=== PATIENT | male | born 1960 | race Caucasian/White ===

== ENCOUNTER 2023-01-04 09:31 | Inpatient (IN) | payer MEDICAID ==
[2022-12-29 14:41] LABS: BASOPHILS # (AUTO) 0.1 X10'3 (0-0.2); BASOPHILS % (AUTO) 0.8 % (0-1); EOSINOPHILS # (AUTO) 0.1 X10'3 (0-0.9); EOSINOPHILS % (AUTO) 1.4 % (0-6); LYMPHOCYTES # (AUTO) 1.8 X10'3 (1.1-4.8); LYMPHOCYTES % (AUTO) 23.7 % (21-51); MEAN CORPUSCULAR HEMOGLOBIN 29.8 PG (27.0-31.0); MEAN CORPUSCULAR HGB CONC 33.7 g/dL (33.0-36.5); MEAN CORPUSCULAR VOLUME 88.4 FL (78-98); MEAN PLATELET VOLUME 8.9 FL (7.4-10.4); MONOCYTES # (AUTO) 0.6 X10'3 (0-0.9); MONOCYTES % (AUTO) 7.7 % (2-12); NEUTROPHILS # (AUTO) 5.1 X10'3 (1.8-7.7); NEUTROPHILS % (AUTO) 66.4 % (42-75); PRE OP HEMATOCRIT 45.6 % (42.0-52.0); PRE OP HEMOGLOBIN 15.4 g/dL (14.0-17.9); PRE OP PLATELET COUNT 215 X10'3 (140-440); RED BLOOD COUNT 5.17 X10'6 (4.70-6.10); RED CELL DISTRIBUTION WIDTH 13.7 % (11.5-14.5)
[2022-12-29 14:55] LABS: ALBUMIN 4.1 G/DL (3.4-5.0); ALBUMIN/GLOBULIN RATIO 1.1 (1.1-1.5); ALKALINE PHOSPHATASE 89 IU/L (46-116); BLOOD UREA NITROGEN 18 MG/DL (7-18); BUN/CREATININE RATIO 13.3 (10.0-20.0); CHLORIDE 102 MMOL/L (99-107); CREATININE 1.35 MG/DL (0.60-1.10); PRE OP ALT 41 U/L (30-65); PRE OP ANION GAP 10 (8-16); PRE OP AST 24 U/L (10-37); PRE OP BILIRUB, TOTAL 0.8 MG/DL (0.0-1.0); PRE OP GLUCOSE 92 MG/DL (70-104); PRE OP POTASSIUM 4.2 MMOL/L (3.4-5.1); PRE OP SODIUM 141 MMOL/L (135-145); TOTAL CARBON DIOXIDE 29.1 MMOL/L (24-32); TOTAL PROTEIN 7.8 G/DL (6.4-8.2); eGFR 54 ML/MIN
[2023-01-04] VITALS (28 sets, daily range): BP systolic 106–137; BP diastolic 69–90; PULSE 82–104; RESP 10–18; TEMP 97.6–98.4; O2SAT 91–100
[~2023-01-04] VITALS: Ht 177.8 cm; Wt 93.1 kg
[~2023-01-04 09:31] MED LIST: DIPH-681 PO; ceFOXitin 2GM-NS 100mL ADDvant 100 ML IV ONE; famotidine 20mg tablet PO ONE; ringers solution, lacted 1,000 ML IV SCH
[2023-01-04] MEDS ORDERED: BUPIVAcaine/PF 2.5 mg/ml (0.25%) 30ml vial ONE (11:49)
[2023-01-04] MEDS ORDERED: LIDOcaine 1% (10mg/ml)w/preservative inj. 20ml MDV ONE (11:49)
[2023-01-04] MEDS ORDERED: ringers solution, lacted 1,000 ML IV SCH (11:55)
[2023-01-04] MEDS ORDERED: fentaNYL/PF 50MCG/1 ML 2ML syringe IV PRN ×2 (11:55)
[2023-01-04] MEDS ORDERED: hydrALAZINE 20mg/ml inj. IV PRN (11:55)
[2023-01-04] MEDS ORDERED: labetalol 20mg/4ml (5mg/ml) syringe IV PRN (11:55)
[2023-01-04] MEDS ORDERED: morphine 2 MG/ML inj. syringe IV PRN (11:55)
[2023-01-04] MEDS ORDERED: ondansetron/PF 4mg/2ml inj IV PRN (11:55)
[2023-01-04] MEDS ORDERED: ondansetron/PF 4mg/2ml inj ONE (12:07)
[2023-01-04] MEDS ORDERED: propofol inj 20 ML IV ONE (12:07)
[2023-01-04] MEDS ORDERED: rocuronium 10mg/ml inj IV ONE ×3 (12:07→13:26)
[2023-01-04] MEDS ORDERED: LIDOcaine 2% (20mg/ml) 5ml vial ONE (12:07)
[2023-01-04] MEDS ORDERED: midazolam 1 mg/ML 2ml injection ONE (12:07)
[2023-01-04] MEDS ORDERED: fentaNYL/PF 50MCG/1 ML 2ML syringe ONE ×2 (12:07→13:00)
[2023-01-04] MEDS ORDERED: INDOCYANINE GREEN 25 MG/10 ML VIAL IV ONE (12:08)
[2023-01-04] MEDS ORDERED: dexamethasone sod phosphate 4mg/ml inj. ONE (12:08)
[2023-01-04] MEDS ORDERED: sevoflurane 250ml liquid IH ONE (12:08)
[2023-01-04] MEDS ORDERED: glycopyrrolate 0.2mg/ml inj ONE (12:08)
[2023-01-04] MEDS ORDERED: neostigmine methylsulfate 1 MG/ML 10ml vial ONE (12:08)
[2023-01-04] MEDS ORDERED: LIDOCAINE 1% w/preservative (10 MG/ML) inj. 10mL VIAL IJ ONE (12:43)
[2023-01-04] MEDS ORDERED: labetalol 20mg/4ml (5mg/ml) syringe IV ONE (12:51)
--- NOTE | 2023-01-04 15:12 | NUR ---
Received from OR via HOSPITAL BED TO RR 6, accompanied by Anesthesiologist TONY and report given by Anesthesiolgist. PATIENTS VSS, SPO2 96% ON 10L MASK. LR RUNNING AT 100ML/HR, ABD ISLAND DRESSING TO RLQ, BANDAIDS X 3 ALL CDI. F/C DRAINING TO GRAVITY, URINE CY. WILL CONTINUE TO ASSESS
[2023-01-04] MEDS ORDERED: naloxone 0.4 mg/ml inj IV PRN (15:15)
[2023-01-04] MEDS ORDERED: oxyCODONE/APAP 5-325mg tablet PO PRN (15:35)
[2023-01-04] MEDS ORDERED: diphenhydrAMINE 25mg capsule PO PRN (15:40)
[2023-01-04] MEDS: morphine 4 MG/ML inj SYRINge IV PRN ×2 (15:42→17:32)
--- NOTE | 2023-01-04 15:55 | NUR ---
INCENTIVE SPIROMETER GIVEN TO PATIENT: HE IS NOT READY TO USE AT THIS TIME. ADDED 2L NC FOR COMFORT AND SPO2 91% ON RA.
[2023-01-04] MEDS: ketorolac trometh. 30mg/ml inj. IV SCH (16:00)
--- NOTE | 2023-01-04 17:30 | NUR ---
Received patient report via phone from Maricarmen OTERO in Recovery. All questions answered. Will assume patient care when patient comes to the floor.
--- NOTE | 2023-01-04 17:45 | NUR ---
Patient arrived to the floor via hospital bed. Del Castillo catheter in place, 20G piv RIGHT FA, IV fluids infusing per MD orders. lap sites and small island dressing CDI. Vital signs stable. Started patient on post op vitals and patient is on 2L oxygen via NC. Will monitor patient and hand off report to NOC shift coming on shift.
--- NOTE | 2023-01-04 17:52 | NUR ---
PATIENT REPORT GIVEN TO BRANDEN JACOBS, ALL QUESTIONS, COMMENTS, AND CONCERNS ANSWERED AT THIS TIME. PATIENT TRANSPORTED ON HOSPITAL BED TO ROOM 40AAA. PERSONAL BAG AND 2 HOSPITAL BAGS WITH PATIENT INCLUDING IS. VSS WITH SPO2 97% ON 2L NC. LR RUNNING AT 100ML/HR. F/C DRAINING TO GRAVITY, URINE REMAINS CY. DRESSING CDI AND [address], CDI[address] BLL, 2 RAILS UP, CALL LIGHT WITHIN REACH. ONCOMING NURSE IN ROOM UPON TRANSFER.
[2023-01-04] MEDS: ringers solution, lacted 1,000 ML IV SCH (18:01)
--- NOTE | 2023-01-04 18:45 | NUR ---
Patient in room ORTHO 4011. I have received report from BRANDEN JACOBS and had the opportunity to ask questions and assume patient care.
--- NOTE | 2023-01-04 18:56 | NUR ---
Problems reprioritized. Patient report given, questions answered & plan of care reviewed with Elizabeth Tenorio RN.
[2023-01-05] VITALS (7 sets, daily range): BP systolic 99–120; BP diastolic 58–77; PULSE 74–88; RESP 15–18; TEMP 97.7–98.7; O2SAT 93–97
[2023-01-05] MEDS: ketorolac trometh. 30mg/ml inj. IV SCH ×3 (00:11→16:20)
[2023-01-05] MEDS: ringers solution, lacted 1,000 ML IV SCH ×3 (03:10→21:15)
[2023-01-05] MEDS: oxyCODONE/APAP 10/325mg tablet PO PRN ×2 (03:19→07:50)
--- NOTE | 2023-01-05 06:20 | NUR ---
Problems reprioritized. Patient report given, questions answered & plan of care reviewed with JOSHUA SANCHEZ.
[2023-01-05 06:53] LABS: BASOPHILS % (AUTO) 0.2 % (0-1); EOSINOPHILS % (AUTO) 0 % (0-6); HEMOGLOBIN 14.1 g/dl (14.0-17.9); LYMPHOCYTES # (AUTO) 0.9 X10'3 (1.1-4.8); LYMPHOCYTES % (AUTO) 7.3 % (21-51); MEAN CORPUSCULAR HGB CONC 33.5 g/dL (33.0-36.5); MEAN CORPUSCULAR VOLUME 89.5 FL (78-98); MONOCYTES # (AUTO) 1.1 X10'3 (0-0.9); NEUTROPHILS # (AUTO) 10.5 X10'3 (1.8-7.7); NEUTROPHILS % (AUTO) 83.5 % (42-75); PLATELET COUNT 187 X10'3 (140-440); RED CELL DISTRIBUTION WIDTH 13.5 % (11.5-14.5); WHITE BLOOD COUNT 12.6 X10'3 (4.5-11.0)
[2023-01-05 07:07] LABS: ALBUMIN 3.3 G/DL (3.4-5.0); ANION GAP 7 (8-16); BLOOD UREA NITROGEN 17 MG/DL (7-18); BUN/CREATININE RATIO 12.2 (10.0-20.0); CALCIUM 8.5 MG/DL (8.5-10.1); CHLORIDE 102 MMOL/L (99-107); CREATININE 1.39 MG/DL (0.60-1.10); GLUCOSE 131 MG/DL (70-104); POTASSIUM 4.6 MMOL/L (3.5-5.1); SODIUM 137 MMOL/L (135-145); TOTAL CARBON DIOXIDE 27.7 MMOL/L (24-32); eGFR 52 ML/MIN
[2023-01-05] MEDS: enoxaparin 40mg/0.4ml syringe SQ SCH (08:07)
--- NOTE | 2023-01-05 18:00 | NUR ---
I have reviewed and agree with interventions, assessments, and documentation by Candy Chandler LVN.
--- NOTE | 2023-01-05 19:13 | NUR ---
Patient in room ORTHO 4011. I have received report from LAURA LEWIS and had the opportunity to ask questions and assume patient care.
[2023-01-05] MEDS: ondansetron/PF 4mg/2ml inj IV PRN (20:35)
[2023-01-06] MEDS: ringers solution, lacted 1,000 ML IV SCH ×3 (00:06→21:00)
[2023-01-06] MEDS: ketorolac trometh. 30mg/ml inj. IV SCH ×3 (00:09→15:39)
[2023-01-06] MEDS: ondansetron/PF 4mg/2ml inj IV PRN (03:33)
[2023-01-06] MEDS: oxyCODONE/APAP 10/325mg tablet PO PRN ×3 (03:34→19:34)
--- NOTE | 2023-01-06 05:44 | NUR ---
PATIENT COMPLAINING OF NAUSEA AND ZOFRAN ADMINISTERED ORDERED. FEW MINUTE LATER, PATIENT STARTED THROWING UP AND PER DOCTOR ELLIS' S ORDER, TO PLACE AN NJ TUBE. NJ TUBE PLACED AND 600ML BROWN OUTPUT . PATIENT COMPLAINED THAT HE WAS UNCOMFORTABLE AND WANTED THE TUBE OUT. NOTIFIED CHARGE NURSE AND NJ REMOVED. PATIENT EDUCATED BUT INSISTED HE DID NOT WANT THE NJ TUBE. WILL CONTACT THE DOCTOR.
[2023-01-06 06:00] VITALS: BP 93/53; PULSE 122; RESP 14; TEMP 98; O2SAT 93
--- NOTE | 2023-01-06 06:38 | NUR ---
Problems reprioritized. Patient report given, questions answered & plan of care reviewed with DENISE OTERO.
[2023-01-06 06:41] LABS: ALBUMIN 3.2 G/DL (3.4-5.0); ANION GAP 9 (8-16); BLOOD UREA NITROGEN 19 MG/DL (7-18); BUN/CREATININE RATIO 14.2 (10.0-20.0); CALCIUM 8.8 MG/DL (8.5-10.1); CHLORIDE 102 MMOL/L (99-107); CREATININE 1.34 MG/DL (0.60-1.10); GLUCOSE 112 MG/DL (70-104); POTASSIUM 4.1 MMOL/L (3.5-5.1); SODIUM 140 MMOL/L (135-145); TOTAL CARBON DIOXIDE 28.6 MMOL/L (24-32); eGFR 54 ML/MIN
[2023-01-06 06:55] LABS: BASOPHILS % (AUTO) 0.5 % (0-1); EOSINOPHILS % (AUTO) 0 % (0-6); HEMATOCRIT 40.4 % (42.0-52.0); HEMOGLOBIN 13.6 g/dl (14.0-17.9); LYMPHOCYTES # (AUTO) 0.4 X10'3 (1.1-4.8); LYMPHOCYTES % (AUTO) 3.9 % (21-51); MEAN CORPUSCULAR HEMOGLOBIN 30.1 PG (27.0-31.0); MEAN CORPUSCULAR HGB CONC 33.7 g/dL (33.0-36.5); MEAN CORPUSCULAR VOLUME 89.1 FL (78-98); MEAN PLATELET VOLUME 9.1 FL (7.4-10.4); MONOCYTES # (AUTO) 0.7 X10'3 (0-0.9); MONOCYTES % (AUTO) 6.5 % (2-12); NEUTROPHILS # (AUTO) 9.8 X10'3 (1.8-7.7); NEUTROPHILS % (AUTO) 89.1 % (42-75); PLATELET COUNT 181 X10'3 (140-440); RED BLOOD COUNT 4.53 X10'6 (4.70-6.10); RED CELL DISTRIBUTION WIDTH 13.7 % (11.5-14.5)
[2023-01-06 08:00] VITALS: RESP 19
[2023-01-06] MEDS: enoxaparin 40mg/0.4ml syringe SQ SCH (08:49)
[2023-01-06 10:22] VITALS: BP 101/65; PULSE 104; RESP 18; TEMP 98.3; O2SAT 85
--- NOTE | 2023-01-06 15:07 | NUR ---
Patient placed on NPO, no breakfast tray. Patient has no longer been N, V. Lunch tray given along with water. Patient is not tolerating CL diet and walking. Patient states he is having gas since last night. Patient stood up to void, 125cc voided, dark urine.
[2023-01-06 18:00] VITALS: BP 105/69; PULSE 69; RESP 16; TEMP 97.9; O2SAT 96
--- NOTE | 2023-01-06 18:15 | NUR ---
Patient in room ORTHO 4014. I have received report from Bruna OTERO and had the opportunity to ask questions and assume patient care.
[2023-01-06 20:00] VITALS: RESP 16; O2SAT 97
[2023-01-06 22:00] VITALS: BP 104/73; PULSE 110; RESP 19; TEMP 98.9; O2SAT 98
[2023-01-07] MEDS: ketorolac trometh. 30mg/ml inj. IV SCH ×3 (00:13→15:58)
[2023-01-07] MEDS: oxyCODONE/APAP 10/325mg tablet PO PRN (00:14)
[2023-01-07 06:00] VITALS: BP 114/70; PULSE 104; RESP 17; TEMP 97.5; O2SAT 94
--- NOTE | 2023-01-07 06:02 | NUR ---
Problems reprioritized. Patient report given, questions answered & plan of care reviewed with Donna LEWIS.
[2023-01-07 06:23] LABS: BASOPHILS % (AUTO) 0.1 % (0-1); EOSINOPHILS % (AUTO) 0.1 % (0-6); HEMATOCRIT 35.8 % (42.0-52.0); HEMOGLOBIN 12.1 g/dl (14.0-17.9); LYMPHOCYTES # (AUTO) 0.4 X10'3 (1.1-4.8); MEAN CORPUSCULAR HEMOGLOBIN 30.5 PG (27.0-31.0); MEAN CORPUSCULAR HGB CONC 33.8 g/dL (33.0-36.5); MEAN CORPUSCULAR VOLUME 90.3 FL (78-98); MEAN PLATELET VOLUME 8.8 FL (7.4-10.4); MONOCYTES # (AUTO) 0.7 X10'3 (0-0.9); MONOCYTES % (AUTO) 6.7 % (2-12); NEUTROPHILS # (AUTO) 9.9 X10'3 (1.8-7.7); NEUTROPHILS % (AUTO) 89.1 % (42-75); PLATELET COUNT 157 X10'3 (140-440); RED BLOOD COUNT 3.97 X10'6 (4.70-6.10); RED CELL DISTRIBUTION WIDTH 14.2 % (11.5-14.5); WHITE BLOOD COUNT 11.1 X10'3 (4.5-11.0)
[2023-01-07 06:29] LABS: ALBUMIN 2.6 G/DL (3.4-5.0); ANION GAP 8 (8-16); BLOOD UREA NITROGEN 29 MG/DL (7-18); BUN/CREATININE RATIO 19.3 (10.0-20.0); CALCIUM 8.5 MG/DL (8.5-10.1); CHLORIDE 100 MMOL/L (99-107); GLUCOSE 115 MG/DL (70-104); SODIUM 136 MMOL/L (135-145); TOTAL CARBON DIOXIDE 28.2 MMOL/L (24-32); eGFR 48 ML/MIN
--- NOTE | 2023-01-07 06:39 | NUR ---
Patient in room ORTHO 4014. I have received report from BRANDEN Oshea and had the opportunity to ask questions and assume patient care.
[2023-01-07 08:00] VITALS: RESP 16; O2SAT 94
[2023-01-07] MEDS: enoxaparin 40mg/0.4ml syringe SQ SCH (08:19)
[2023-01-07 10:00] VITALS: BP 106/70; PULSE 103; RESP 16; TEMP 99.1; O2SAT 91
[2023-01-07] MEDS: ringers solution, lacted 1,000 ML IV SCH (13:15)
--- NOTE | 2023-01-07 13:31 | NUR ---
COOK CASHIER FOOD PREP documentation: I have reviewed and agree with all interventions, assessments performed and documented by Tremaine Sawyer LVN .
[2023-01-07] MEDS ORDERED: magnesium hydroxide 30ml (MOM) UD suspension PO ONE (16:00)
[2023-01-07 18:00] VITALS: BP 119/73; PULSE 109; RESP 14; TEMP 97.7; O2SAT 91
--- NOTE | 2023-01-07 18:15 | NUR ---
Patient in room ORTHO 4014. I have received report from Donna LEWIS and had the opportunity to ask questions and assume patient care.
[2023-01-07 20:00] VITALS: RESP 14; O2SAT 91
--- NOTE | 2023-01-07 20:00 | NUR ---
Pt showered this evening, during this time I observed his lap and incision sites. he has three lap sites left anterior lateral with two demetrius securing each lap site. The skin around these sites are pink with no signs of drainage. I also observed an incision site medial lower abdomen that has 4 demetrius. The skin is also pink with no signs of drainage. Will continue to monitor.
[2023-01-07 22:00] VITALS: BP 126/70; PULSE 114; RESP 16; TEMP 98.1; O2SAT 93
[2023-01-08] MEDS: ondansetron/PF 4mg/2ml inj IV PRN (00:33)
--- NOTE | 2023-01-08 02:53 | NUR ---
Pt has ambulated 600ft this shift resulting in positive flatus. Will continue to encourage walking in an attempt to continue to pass gas.
[2023-01-08 04:35] LABS: ALBUMIN 2.4 G/DL (3.4-5.0); ANION GAP 10 (8-16); BLOOD UREA NITROGEN 30 MG/DL (7-18); BUN/CREATININE RATIO 21.1 (10.0-20.0); CALCIUM 8.8 MG/DL (8.5-10.1); CHLORIDE 99 MMOL/L (99-107); CREATININE 1.42 MG/DL (0.60-1.10); GLUCOSE 126 MG/DL (70-104); POTASSIUM 3.7 MMOL/L (3.5-5.1); SODIUM 137 MMOL/L (135-145); eGFR 51 ML/MIN
[2023-01-08 04:45] LABS: BASOPHILS % (AUTO) 0.1 % (0-1); EOSINOPHILS % (AUTO) 0 % (0-6); HEMATOCRIT 35.8 % (42.0-52.0); LYMPHOCYTES # (AUTO) 0.5 X10'3 (1.1-4.8); MEAN CORPUSCULAR HEMOGLOBIN 30.3 PG (27.0-31.0); MEAN CORPUSCULAR HGB CONC 33.6 g/dL (33.0-36.5); MEAN CORPUSCULAR VOLUME 90.1 FL (78-98); MEAN PLATELET VOLUME 8.9 FL (7.4-10.4); MONOCYTES # (AUTO) 1.2 X10'3 (0-0.9); MONOCYTES % (AUTO) 9.4 % (2-12); NEUTROPHILS # (AUTO) 11.3 X10'3 (1.8-7.7); NEUTROPHILS % (AUTO) 86.5 % (42-75); PLATELET COUNT 178 X10'3 (140-440); RED BLOOD COUNT 3.97 X10'6 (4.70-6.10); RED CELL DISTRIBUTION WIDTH 13.8 % (11.5-14.5); WHITE BLOOD COUNT 13.1 X10'3 (4.5-11.0)
[2023-01-08 06:00] VITALS: BP 122/71; PULSE 98; RESP 16; TEMP 98.8; O2SAT 92
--- NOTE | 2023-01-08 06:18 | NUR ---
Problems reprioritized. Patient report given, questions answered & plan of care reviewed with Donna LEWIS.
--- NOTE | 2023-01-08 06:19 | NUR ---
Patient in room ORTHO 4014. I have received report from BRANDEN Oshea and had the opportunity to ask questions and assume patient care.
[2023-01-08] MEDS: ringers solution, lacted 1,000 ML IV SCH (06:51)
[2023-01-08 08:00] VITALS: RESP 16; O2SAT 97
[2023-01-08] MEDS: enoxaparin 40mg/0.4ml syringe SQ SCH (08:01)
[2023-01-08] MEDS: oxyCODONE/APAP 10/325mg tablet PO PRN ×2 (09:42→22:15)
[2023-01-08 10:00] VITALS: BP 118/71; PULSE 101; RESP 16; TEMP 97.6; O2SAT 97
[2023-01-08] MEDS ORDERED: metoclopramide 5 mg/ml inj IV PRN (14:00)
[2023-01-08] MEDS: metoclopramide 5 mg/ml inj IV SCH ×2 (14:10→20:14)
--- NOTE | 2023-01-08 15:49 | NUR ---
CARPET INSTALLATION SPECIALIST documentation: I have reviewed and agree with all interventions, assessments performed and documented by Tremaine Sawyer LVN.
[2023-01-08 18:00] VITALS: BP 106/65; PULSE 117; RESP 18; TEMP 102; O2SAT 90
--- NOTE | 2023-01-08 18:46 | NUR ---
Problems reprioritized. Patient report given, questions answered & plan of care reviewed with JOSHUA Chang.
--- NOTE | 2023-01-08 20:15 | NUR ---
He verbalized that he passed gas in the early am but not much since then. He also has intermittent nausea and abd pain. Addendum: 01/08/23 at 2312 by Shayla Crain RN Amended: Links added.
[2023-01-08] MEDS: magnesium hydroxide 30ml (MOM) UD suspension PO SCH (20:17)
[2023-01-08 22:00] VITALS: BP 118/73; PULSE 108; RESP 16; TEMP 97.8; O2SAT 93
--- NOTE | 2023-01-08 23:12 | NUR ---
Agree with Charlene LEWIS physical assessment except where I documented my findings.
[2023-01-09] MEDS: metoclopramide 5 mg/ml inj IV SCH ×3 (01:30→14:00)
[2023-01-09 06:00] VITALS: BP 107/65; PULSE 101; RESP 16; TEMP 97.7; O2SAT 92
--- NOTE | 2023-01-09 06:14 | NUR ---
Problems reprioritized. Patient report given, questions answered & plan of care reviewed with Kacie LEWIS.
--- NOTE | 2023-01-09 06:26 | NUR ---
Patient in room ORTHO 4007. I have received report from JOSHUA Pope and had the opportunity to ask questions and assume patient care. NAD at this time.
[2023-01-09 07:05] LABS: BASOPHILS % (AUTO) 0.2 % (0-1); EOSINOPHILS % (AUTO) 0.1 % (0-6); HEMATOCRIT 38.2 % (42.0-52.0); HEMOGLOBIN 12.7 g/dl (14.0-17.9); LYMPHOCYTES # (AUTO) 0.7 X10'3 (1.1-4.8); LYMPHOCYTES % (AUTO) 5.8 % (21-51); MEAN CORPUSCULAR HEMOGLOBIN 30.2 PG (27.0-31.0); MEAN CORPUSCULAR HGB CONC 33.4 g/dL (33.0-36.5); MEAN CORPUSCULAR VOLUME 90.6 FL (78-98); MEAN PLATELET VOLUME 8.4 FL (7.4-10.4); MONOCYTES # (AUTO) 1.5 X10'3 (0-0.9); MONOCYTES % (AUTO) 13.5 % (2-12); NEUTROPHILS # (AUTO) 9.2 X10'3 (1.8-7.7); NEUTROPHILS % (AUTO) 80.4 % (42-75); PLATELET COUNT 212 X10'3 (140-440); RED BLOOD COUNT 4.21 X10'6 (4.70-6.10); RED CELL DISTRIBUTION WIDTH 13.9 % (11.5-14.5); WHITE BLOOD COUNT 11.4 X10'3 (4.5-11.0)
[2023-01-09] MEDS: oxyCODONE/APAP 10/325mg tablet PO PRN (07:19)
[2023-01-09] MEDS: magnesium hydroxide 30ml (MOM) UD suspension PO SCH (07:19)
[2023-01-09] MEDS: enoxaparin 40mg/0.4ml syringe SQ SCH (07:23)
[2023-01-09 07:24] LABS: ALBUMIN 2.5 G/DL (3.4-5.0); ANION GAP 11 (8-16); BLOOD UREA NITROGEN 24 MG/DL (7-18); BUN/CREATININE RATIO 16.4 (10.0-20.0); CALCIUM 8.8 MG/DL (8.5-10.1); CHLORIDE 97 MMOL/L (99-107); CREATININE 1.46 MG/DL (0.60-1.10); GLUCOSE 101 MG/DL (70-104); POTASSIUM 3.4 MMOL/L (3.5-5.1); SODIUM 135 MMOL/L (135-145); TOTAL CARBON DIOXIDE 26.9 MMOL/L (24-32); eGFR 49 ML/MIN
[2023-01-09 08:00] VITALS: RESP 16; O2SAT 98
--- NOTE | 2023-01-09 09:29 | NUR ---
Patient has no replacement regimen for replacement of K: calling Dr. Caceres who is covering for Dr. Wang.
--- NOTE | 2023-01-09 09:44 | NUR ---
No response when attempting to contact the surgeon; pt doesn't of the hospitalist on the other note as well. Will keep trying and await for rounding as well to seek protocol K treatment.
[2023-01-09] MEDS ORDERED: potassium Cl 20 mEq SR tablet PO PRN ×2 (09:55)
[2023-01-09] MEDS ORDERED: potassium Cl 40MEQ/1/2NS 520ml 520 ML IV PRN (09:55)
[2023-01-09] MEDS ORDERED: magnesium Cl slow-release 64mg tablet PO PRN (09:55)
[2023-01-09 10:00] VITALS: BP 99/64; PULSE 92; RESP 16; TEMP 98.1; O2SAT 91
[2023-01-09 10:20] LABS: MAGNESIUM 2.5 MG/DL (1.5-2.4)
--- NOTE | 2023-01-09 12:33 | NUR ---
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 Advanced to clear liquids from initial NPO 01/05 ~56% first 4 meals now remains on full liquids since 01/07 WL ~30% avg meals not meeting estimated needs. CASEY d/w BOOKKEEPING CLERK pt would benefit from Ensure Enlive TIDWM to assist meeting needs if surgeon agreeable. LBM 01/09 receiving routine MoM and reglan per EMR. Will monitor for further nutrition intervention needs. Rec: 1. advance diet as medically indicated to low-residue; encourage PO 2. Ensure Enlive TIDWM if surgeon agreeable to assist meeting nutrient needs 3. routine bowel care 4. weekly wt Addendum: 01/09/23 at [address] Amended: Links added.
--- NOTE | 2023-01-09 15:33 | NUR ---
Patient d/c'd, accompanied by his mother. Patient has no acute distress at this time. Discharge paperwork provided and signed with all questions answered. IV d/c'd to the right forearm, cannula intact.
[2023-01-09] MEDS ORDERED: K and/or MAG REPLACEMENT MC SCH (20:00)
== END 2023-01-09 15:54 | disposition home or self-care (01) | DRG 231 ==
LOC: PAS IN 09:31 → ORTHO 4S 17:53
PROVIDERS: ADMIT Surgery; ATTEND Surgery
PROC: 8E0W4CZ Robotic Assisted Procedure of Trunk Region, Percutaneous Endoscopic Approach (ICD-10-PCS; 2023-01-04)
PROC: 0DTF4ZZ Resection of Right Large Intestine, Percutaneous Endoscopic Approach (ICD-10-PCS; principal; 2023-01-04 12:08)
DX: D37.4 Neoplasm of uncertain behavior of colon (principal); R00.0 Tachycardia, unspecified; Z79.899 Other long term (current) drug therapy
CPT/HCPCS: 36415; 74018; 80048; 80053; 82948; 83735; 85025; 86885; 86900; 86901; 87081; 93005; A4215; A4615; A4618; C1758; G0378; J0694; J1100; J1650; J1885; J2250; J2270; J2405; J2704; J2710; J2765; J3010; J3490; J7120